=== PATIENT | male | born 1950 | race African-American/Black ===

== ENCOUNTER 2021-05-21 13:59 | Inpatient (IN) | payer MEDICARE, OTHER ==
[~2021-05-21] VITALS: Ht 186.7 cm; Wt 102.5 kg
--- NOTE | 2021-05-21 14:03 | NUR ---
BIB [facility] ambulance on 5150 hold (DTS) from [facility] for medical clearance for MHU. Per report and transfer paperwork pt has already been medically cleared at sending facility. Pt placed in room 2B. Pt arrives calm/cooperative and denies any SI/HI at this time.
--- NOTE | 2021-05-21 14:05 | NUR ---
Requested 1:1 sitter for patient safety and hospital protocol, there is no sitter available at this time and nursing lower in supervisor is aware.
--- NOTE | 2021-05-21 14:15 | NUR ---
Per pt is medically clear and may be trans to MHU. Called MHU for bed assignment and was told they do not have any beds available. Called nursing office, nursing preparation department supervisor to call back.
--- NOTE | 2021-05-21 14:30 | NUR ---
Pt eating lunch, NAD noted. Pending admission to MHU.
[2021-05-21] MEDS ORDERED: NA P133E RC (14:31)
[2021-05-21] MEDS ORDERED: SENN-22 PO (14:31)
[2021-05-21] MEDS ORDERED: ENOX40DI SUBCUT (14:31)
[2021-05-21] MEDS ORDERED: LORA-259 PO (14:31)
[2021-05-21] MEDS ORDERED: ACET-2154 PO (14:31)
[2021-05-21] MEDS ORDERED: POLY17PO4 PO (14:31)
[2021-05-21] MEDS ORDERED: OLAN5TAB3 PO (14:31)
[2021-05-21] MEDS ORDERED: NITR0.4T SL (14:31)
--- NOTE | 2021-05-21 15:00 | NUR ---
Noted pt's 5150 hold was written on 05/18/21 at 1520 and will at 1520 today. Called and spoke with Art who stated he will come to eval pt.
--- NOTE | 2021-05-21 16:30 | NUR ---
Pt placed on 5150 Hold (DTS) by Derrek.
--- NOTE | 2021-05-21 17:30 | NUR ---
Pt watching TV and eating dinner with NAD noted. Per nursing cheese supervisor pt will be assigned a MHU room after change of shift.
--- NOTE | 2021-05-21 19:39 | NUR ---
Recieved report from ISABEL Vargas. Pt in bed watching television. NAD. Will continue to monitor.
--- NOTE | 2021-05-21 21:26 | NUR ---
Pt. resting in bed watching tv. Per MHU nurse, pt will be going to rm 141A, rm will be ready in aprox 45 min.
--- NOTE | 2021-05-21 22:30 | NUR ---
Pt resting in bed watching television. NAD. VSS. Will continue to monitor.
--- NOTE | 2021-05-22 | NUR ---
Pt sleeping. NAD. Will continue to monitor.
--- NOTE | 2021-05-22 01:07 | NUR ---
Gave report to ISABEL lucia.
[2021-05-22] MEDS ORDERED: BLOOD SUGAR DIAGNOSTIC 1 EACH STRIP VI ONE (01:30)
[2021-05-22] MEDS ORDERED: TEMAZEPAM 7.5 MG CAPSULE PO PRN (01:30)
[2021-05-22] MEDS ORDERED: MAG HYDROX/AL HYDROX/SIMETH 30 ML LIQUID UDC PO PRN (01:30)
[2021-05-22] MEDS ORDERED: LORAZEPAM 1 MG TABLET PO PRN (01:30)
[2021-05-22] MEDS ORDERED: ACETAMINOPHEN 325 MG TABLET PO PRN ×2 (01:30→10:30)
[2021-05-22] MEDS ORDERED: MAGNESIUM HYDROXIDE 30 ML LIQUID UDC PO PRN (01:30)
[2021-05-22 02:23] VITALS: BP 146/93
--- NOTE | 2021-05-22 06:32 | NUR ---
Pt received from ER in a safe, stable condition. A/O x3, no s/s of distress. Pt denies any pain or discomfort. Upon [id number] assessment, pt is cooperative, able to interact appropriately and denies intent to harm self or others. Per hold, pt is here due to overdosing in Seroquel. and verbalizing inability to cope with stressors. Pt's Rights Handbook and Advisement given. Dr. Huddleston made aware of admission. Oriented pt to environment and the unit. Kept comfortable, safety precautions in place. Q15 min checks done per unit protocol to ensure safety. Will endorse accordingly.
[2021-05-22 07:30] VITALS: BP 121/84
--- NOTE | 2021-05-22 08:32 | NUR ---
FIREARMS REPORT: Certified Nursing Attendant completed and submitted a [employer] firearms report for 5150 grave disability certification. A copy of report has been placed in patient chart.
--- NOTE | 2021-05-22 09:46 | NUR ---
Brief Substance Abuse Intervention: Patient was provided with a brief substance abuse intervention for medications overdose and referred to the following substance abuse programs: [facility]stance Abuse Self-helpline ([phone]); [facility] [address] [place] [address] ([phone]); [facility] [address] [facility] [address] ([phone]); [facility] ([phone]); [facility] ([phone]); [facility] ([phone]); [facility] ([phone]).
[2021-05-22] MEDS ORDERED: NITROGLYCERIN 0.4 MG/TAB BOTTLE SL PRN (10:30)
[2021-05-22] MEDS ORDERED: FLEET ENEMA 133 ML BOTTLE RC PRN (10:30)
--- NOTE | 2021-05-22 11:36 | NUR ---
MICKEY Initial Discharge Plan: Patient resides in a Camper in [place], [place]. Patient lives alone. Patient is very resourceful and is connected with [facility] ([phone]). Patient does not want his family contacted. Patient would like to return back to his Camper upon discharge. MICKEY offered patient SNF however he refused. MICKEY will continue to work with patient and MD to ensure a safe and proper discharge plan.
--- NOTE | 2021-05-22 11:41 | NUR ---
Treatment Plan: Patient refused to sign the treatment plan at this time.
[2021-05-22] MEDS: ESCITALOPRAM OXALATE 10 MG TABLET PO SCH (14:45)
[2021-05-22 15:35] VITALS: BP 149/95
[2021-05-22] MEDS: MIRALAX 17 GM POWD.PACK PO SCH (17:09)
[2021-05-22] MEDS ORDERED: ENOXAPARIN SODIUM 40 MG/0.4 ML DISP.SYRIN SQ SCH (18:00)
[2021-05-22] MEDS: SENNOSIDES/DOCUSATE SODIUM TABLET PO SCH (20:31)
[2021-05-23 07:30] VITALS: BP 121/70
[2021-05-23] MEDS: ESCITALOPRAM OXALATE 10 MG TABLET PO SCH (08:37)
--- NOTE | 2021-05-23 14:33 | NUR ---
MICKEY Discharge Planning: SW contacted [facility] Quantity Surveyor ([phone]) to coordinate patient's transportation for tomorrow. Left a voicemail informing discharge tomorrow and waiting for a call back.
[2021-05-23 16:00] VITALS: BP 122/77
[2021-05-23] MEDS: MIRALAX 17 GM POWD.PACK PO SCH (17:07)
[2021-05-23] MEDS: SENNOSIDES/DOCUSATE SODIUM TABLET PO SCH (21:00)
--- NOTE | 2021-05-23 22:00 | NUR ---
received to care in TV room, pleasant upon approach, but does not interact with peer4s. denies felling suicidal, or wanting to hurt self. declined any PRN medications. currently watching TV. no distress noted.
[2021-05-23 22:21] VITALS: BP 125/77
--- NOTE | 2021-05-24 06:00 | NUR ---
slept 4.5 hours
[2021-05-24 07:30] VITALS: BP 120/75
[2021-05-24] MEDS: ESCITALOPRAM OXALATE 10 MG TABLET PO SCH ×2 (09:00→09:54)
--- NOTE | 2021-05-24 09:55 | NUR ---
SW Discharge Note: Patient will be discharged back to his Home [facility] which is located at [facility] [address] [place] [address] ([phone]). Patient is prided with [employer] at 1pm to [address] [place] [address]. Patient will be provided transportation through [facility] senior case manager who arranged an [employer] departing at 3:38pm from [place] in [place] at 5:41pm. Patient is alert and oriented x4 and is aware and agreeable with discharge plan. Patient denies suicidal or homicidal ideation. Patient presents with euthymic mood and congruent affect. Patient will be following up with his psychiatrist Dr. Aguirre [address] [place] [id number] ([phone]). Patient will be following up with is primary physician Dr. Daigle [address] [place], [address] ([phone]).
--- NOTE | 2021-05-24 12:50 | NUR ---
Gps/Graphics Editor-Denies any discomfort, , discharge plan this pm, patient was well informed. reviewed discharged instructions, patient refused to make any comments claimed he is happy he is going home today, and he will take care of himself per pt. denies any S.I./H.I. Instructed to follow up with Psychiatrist Dr Aguirre as recommended as well as Dr Daigle (Child'S Nurse) , patient verbalized understanding. Patient claimed he does not needs any prescriptions, he will not take medications for depression. . Will be discharge via taxi as arranged , excelsior picker time at 1300 pt. was informed.
== END 2021-05-24 13:05 | disposition home or self-care (01) | DRG 885 ==
LOC: ER 13:59 → GPS 15:20
PROVIDERS: ADMIT Psychiatry & Neurology Psychiatry; ATTEND Internal Medicine
DX: F33.2 Major depressive disorder, recurrent severe without psychotic features (principal); F23 Brief psychotic disorder; R45.851 Suicidal ideations; T43.592D Poisoning by other antipsychotics and neuroleptics, intentional self-harm, subsequent encounter; E03.9 Hypothyroidism, unspecified; M62.81 Muscle weakness (generalized); F41.9 Anxiety disorder, unspecified; F19.10 Other psychoactive substance abuse, uncomplicated; Z90.49 Acquired absence of other specified parts of digestive tract
CPT/HCPCS: 36415; A4663